=== PATIENT | male | born 1995 | race Caucasian/White ===

== ENCOUNTER 2016-05-02 07:36 | Emergency (ER) | payer BC ==
[~2016-05-02] VITALS: Ht 177.8 cm; Wt 63.5 kg
[2016-05-02 07:54] VITALS: BP 132/58
--- NOTE | 2016-05-02 08:26 | PHYS DOC ---
Past Medical History Past Medical History: No Pertinent History Past Surgical History: Other Additional Past Surgical Histo: TESTICULAR SURGERY BABY, CIRCUMCISION, LEFT HAND Alcohol Use: Occasionally Drug Use: None Adult General Chief Complaint Chief Complaint: HEADACHE HPI HPI Patient is a 21 year old male who presents the emergency room with complaint of a headache 3 days. Patient reports this is atraumatic in nature. He states that he does have a history of headaches in the past that were diagnosed as "migraines" by his primary care doctor. He denies ever seen a neurologist for his headaches. Patient reports that this headache is on the right side of his head and does not radiate. He states this is similar to headaches that he's had in the past. He denies photophobia, visual disturbances, photophobia or tinnitus. He denies any focal alterations in sensation, weakness or numbness. Patient states he has been experiencing some "chills". He is also been experiencing a nonproductive cough and congestion for the past 2 days as well. He denies being on antibiotics within the past 30 days. Patient denies previous skull fractures, concussions, brain bleeds, tumors, pseudotumors, strokes or mini strokes. Review of Systems Review of Systems Constitutional: Denies fever or chills [] Eyes: Denies change in visual acuity, redness, or eye pain [] HENT: Denies nasal congestion or sore throat [] Respiratory: Denies cough or shortness of breath [] Cardiovascular: No additional information not addressed in HPI [] GI: Denies abdominal pain, nausea, vomiting, bloody stools or diarrhea [] : Denies dysuria or hematuria [] Musculoskeletal: Denies back pain or joint pain [] Integument: Denies rash or skin lesions [] Neurologic: Denies headache, focal weakness or sensory changes [] Endocrine: Denies polyuria or polydipsia [] Current Medications Current Medications Current Medications Medications (Trade) Dose Ordered Sig/[facility] Start Time Stop Time Status Last Admin Dose Admin Ketorolac Tromethamine (Toradol Im) 60 mg 1X ONCE 05/02/16 08:30 05/02/16 08:31 DC 05/02/16 08:27 60 MG Promethazine HCl (Phenergan Im) 50 mg 1X ONCE 05/02/16 08:30 05/02/16 08:31 DC 05/02/16 08:27 50 MG Allergies Allergies Allergies Coded Allergies Type Severity Reaction Last Updated Verified No Known Drug Allergies 05/02/16 No Physical Exam Physical Exam Constitutional: Well developed, well nourished, no acute distress, non-toxic appearance. Patient appears to be sitting comfortably upright on the exam bed. HENT: Normocephalic, atraumatic, bilateral external ears normal, oropharynx moist, no oral exudates, boggy nasal mucosa with a scant amount of clear rhinorrhea. There is no trismus or hot potato speech. Posterior oropharynx is normal in appearance. Bilateral tympanic membranes are pearly mckeon slightly retracted. There is scar tissue on the tympanic membranes. There is a small fluid meniscus behind the left tympanic membrane. The margins of the umbo's are not distorted. There is no erythema. There is no evidence of mastoiditis. Eyes: PERRLA, EOMI, conjunctiva normal, no discharge. [] Neck: Normal range of motion, no tenderness, supple, no stridor. There is no meningismus. There is bilateral anterior and posterior cervical lymphadenopathy. Cardiovascular:Heart rate regular rhythm, no murmur [] Lungs & Thorax: Bilateral breath sounds clear to auscultation Abdomen: Bowel sounds normal, soft, no tenderness, no masses, no pulsatile masses. [] Skin: Warm, dry, no erythema, no rash. [] Back: No tenderness, no CVA tenderness. [] Extremities: No tenderness, no cyanosis, no clubbing, ROM intact, no edema. [] Neurologic: Alert and oriented X 3, normal motor function, normal sensory function, no focal deficits noted. Psychologic: Affect normal, judgement normal, mood normal. [] Current Patient Data Vital Signs Vital Signs Date Time Temp Pulse Resp B/P Pulse Ox O2 Delivery O2 Flow Rate FiO2 05/02/16 07:54 98.2 94 18 99 Room Air 98.2 EKG EKG [] Radiology/Procedures Radiology/Procedures [] Course & Med Decision Making Course & Med Decision Making I discussed with patient and his mother, who is at the bedside, different medications that can be utilized for his headache. Patient declined an IV at this time. He states that he would take the IM medication to help the headache. Patient reassures me that he's had similar headaches to this in the past. Both he and mother are comfortable without imaging and laboratory test. Patient received 60 mg of Toradol IM and 50 mg of Phenergan IM. I reevaluated the patient approximately 20 minutes after receiving the medication. He states that he was beginning to feel relief with the medication would like to go home. I answered patient mother's questions to their satisfaction. They will contact Dr. Avila's office to schedule follow-up appointment. Dragon Disclaimer Dragon Disclaimer This electronic medical record was generated, in whole or in part, using a voice recognition dictation system. Departure Departure Impression: Primary Impression: Upper respiratory infection Additional Impression: Headache Disposition: HOME, SELF-CARE Condition: IMPROVED Referrals: NO PCP (PCP) MARINA AVILA MD Patient Instructions: General Headache Without Cause, [id number], Upper Respiratory Infection, Adult, [id number] Additional Instructions: 1. Take the medication as prescribed. 2. Review the discharge instructions provided for self-care and reasons to return to the emergency department. 3. Use Afrin nasal spray twice a day for the next 3 days. Take an over-the- counter decongestant to help with your symptoms. Patient to drink 8-10, 10 ounce glasses of non-caffeinated beverage daily. 4. Contact Dr. Avila's office this afternoon or tomorrow to schedule follow-up appointment. Scripts Ondansetron (Zofran Odt)4 Mg Tab.rapdis1 Tab SL Q8HRS NAUSEA #10 TAB Prov:ANANDA CHRISTENSEN 05/02/16 Butalb/Acetaminophen/Caffeine (Fioricet 50-300-40 Mg Capsule)1 Each Capsule2 Each PO Q6HRS PRN HEADACHE #20 CAP Prov:ANANDA CHRISTENSEN 05/02/16 Problem Qualifiers ANANDA CHRISTENSEN May 02, 2016 08:26
[2016-05-02] MEDS ORDERED: PROMETHAZINE IM 25 MG/ML VIAL IM ONE (08:30)
[2016-05-02] MEDS ORDERED: KETOROLAC TROMETHAMINE 60 MG/2 ML SYRINGE. IM ONE (08:30)
[2016-05-02] MEDS ORDERED: ONDA4TAB10 SL (08:54)
[2016-05-02] MEDS ORDERED: BUTA1CAP29 PO (08:54)
== END 2016-05-02 09:04 | disposition home or self-care (01) ==
LOC: ER 07:36
DX: R51 Headache (principal); J06.9 Acute upper respiratory infection, unspecified; G43.909 Migraine, unspecified, not intractable, without status migrainosus
CPT/HCPCS: 96372; 99284; J1885; J2550

== ENCOUNTER 2020-11-19 01:37 | Emergency (ER) | payer OTHER ==
[~2020-11-19] VITALS: Ht 175.3 cm; Wt 68.2 kg
[~2020-11-19 01:37] MED LIST: BUTA1CAP29 PO; ONDA4TAB10 SL
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
[2020-11-19] MEDS ORDERED: ORPH100T PO (03:04)
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
[2020-11-19 03:14] VITALS: BP 121/69
== END 2020-11-19 03:24 | disposition home or self-care (01) ==
LOC: ER 01:37
DX: S20.212A Contusion of left front wall of thorax, initial encounter (principal); M54.5 Low back pain; M54.2 Cervicalgia; V47.5XXA Car driver injured in collision with fixed or stationary object in traffic accident, initial encounter; Y93.I9 Activity, other involving external motion; Y92.488 Other paved roadways as the place of occurrence of the external cause; Y99.8 Other external cause status
CPT/HCPCS: 71046; 72100; 99284